=== PATIENT | male | born 1955 | race Caucasian/White ===

== ENCOUNTER → 2017-07-10 | Outpatient (CLI) | payer OTHER ==
[~2017-07-10] MED LIST: ALDACTONE25 MG PO; ASPIR 8181 MG PO; CARVEDILOL25 MG PO; COREG6.25 MG PO; DIGITEK125 MC1 PO; GLYBURIDE 5 MG T5 M1 PO; KLOR-CON 1010 MEQ PO; LASIX 40 MG TAB40 M2 PO; LISINOPRIL2.5 MG PO; PREDNISONE 10 M10 MG PO
--- NOTE | ~2017-07-10 | 2DMMODE ---
[facility] [address] [place] [address] 2 D/M-MODE ECHOCARDIOGRAM Name: ANETTE FIGUEROA Room #: [facility]#: [id number] Admission: 07/10/17 Attend Phys: Jimmy Miller MD Discharge: Date of : 55 Date of Service: 07/10/17 1058 Report #: [id number] THIS REPORT FOR: //name// APPROVED REPORT Study performed: 07/10/2017 10:03:28 EXAM: Comprehensive 2D, Doppler, and color-flow Echocardiogram Patient Location: Echo lab Status: routine BSA: 2.10 BP: 179/112 mmHg Other Information Study Quality: Adequate Indications Cardiomyopathy 2D Dimensions LVEF(%): 62.88 (>50%) IVSd: 14.75 (7-11mm) LVOT Diam: 20.31 (18-24mm) LVDd: 39.84 mm PWd: 16.03 (7-11mm) Ascending Ao: 33.93 (22-36mm) LVDs: 26.47 (25-40mm) Aortic Root: 33.56 mm IVC: 10.00 mm Edgar's LVEF: 62.88 % Volumes Left Atrial Volume (Systole) Single Plane 4CH: 39.88 mL Single Plane 2CH: 48.67 mL LA ESV Index: 22.00 mL/m2 Aortic Valve AoV Peak Trace.: 1.62 m/s AO Peak Gr.: 10.54 mmHg LVOT Max P.66 mmHg LVOT Max V: 0.82 m/s TERRANCE Vmax: 1.63 cm2 Mitral Valve E/A Ratio: 0.5 MV Decel. Time: 367.73 ms MV E Max Trace.: 0.44 m/s [facility] [address] [place] [address] 2 D/M-MODE ECHOCARDIOGRAM [facility]: [facility]#: [id number] Admission: 07/10/17 Attend Phys: Jimmy Miller MD Discharge: Date of : 55 Date of Service: 07/10/17 1058 Report #: [id number] MV A Trace.: 0.95 m/s MV PHT: 106.64 ms IVRT: 145.33 ms Pulmonary Valve PV Peak Trace.: 0.95 m/s PV Peak Gr.: 3.61 mmHg Pulmonary Vein P Vein S: 0.69 m/s P Vein A: 0.23 m/s P Vein D: 0.30 m/s P Vein A Dur.: 90.0 msec P Vein S/D Ratio: 2.30 Tricuspid Valve TR Peak Trace.: 2.80 m/s RAP Estimate: 5.00 mmHg TR Peak Gr.: 31.29 mmHg Left Ventricle The left ventricle is normal size. Mild concentric left ventricular hypertrophy. The left ventricular systolic function is normal. The left ventricular ejection fraction is within the normal range. LVEF is 55-60%. Grade I - abnormal relaxation pattern. Right Ventricle The right ventricle is normal size. The right ventricular systolic function is normal. Atria The left atrium size is normal. The right atrium size is normal. Aortic Valve The aortic valve is normal in structure. Trace aortic regurgitation. There is no aortic valvular stenosis. Mitral Valve The mitral valve is normal in structure. Trace mitral regurgitation. No evidence of mitral valve stenosis. Tricuspid Valve The tricuspid valve is normal in structure. There is trace tricuspid regurgitation. The right atrial pressure is estimated at 5 mmHg. PAP is estimated at 36 mmHg. Pulmonic Valve Pulmonic valve is not well visualized. Mild pulmonic regurgitation. [facility] [address] [place] [address] 2 D/M-MODE ECHOCARDIOGRAM Name: ANETTE FIGUEROA [id number] Admission: 07/10/17 Attend Phys: Jimmy Miller MD Discharge: Date of : 55 Date of Service: 07/10/17 1058 Report #: [id number] Great Vessels The aortic root is normal in size. IVC is normal in size and collapses >50% with inspiration. <Conclusion> The left ventricle is normal size. The left ventricular systolic function is normal. Grade I - abnormal relaxation pattern. The right ventricle is normal size. The left atrium size is normal. Trace aortic regurgitation. Trace mitral regurgitation. There is trace tricuspid regurgitation. The right atrial pressure is estimated at 5 mmHg. PAP is estimated at 36 mmHg. <ELECTRONICALLY SIGNED> By: Jimmy Miller MD 07/10/17 1058 1058 1058 Jimmy Miller MD /INF
== END ==
LOC: CV 04-13 09:39
DX: I42.9 Cardiomyopathy, unspecified (principal)